=== PATIENT | male | born 1950 | race Caucasian/White ===

== ENCOUNTER 2021-04-07 09:04 | Emergency (ER) | payer OTHER, MEDICARE ==
[2021-04-07 09:31] VITALS: BP 141/76; PULSE 78; TEMP 98; BMI 22.6
== END 2021-04-07 12:00 | disposition home or self-care (01) ==
LOC: FER 09:04
DX: S69.92XA Unspecified injury of left wrist, hand and finger(s), initial encounter (principal); W00.0XXA Fall on same level due to ice and snow, initial encounter
CPT/HCPCS: 73110-TC-LT-FY; 73130-TC-LT-FY; 99284-25